=== PATIENT | female | born 1975 | race Caucasian/White ===

== ENCOUNTER 2017-06-20 09:22 | Outpatient (CLI) | payer OTHER ==
[2013-12-31 11:51] VITALS: BP 155/67
[2017-06-20 10:17] LABS: eGFR (African) > 60; eGFR (Non-African) > 60
== END 2017-06-20 09:23 ==
LOC: LAB 09:22
PROVIDERS: ATTEND Family Medicine
DX: E78.2 Mixed hyperlipidemia (principal)
CPT/HCPCS: 36415; 80053; 80061

== ENCOUNTER 2018-10-22 07:20 | Outpatient (CLI) | payer OTHER ==
[2013-12-31 11:51] VITALS: BP 155/67
[2018-10-22 08:03] LABS: eGFR (Non-African) > 60
== END 2018-10-22 07:22 ==
LOC: LAB 07:20
PROVIDERS: ATTEND Family Medicine
DX: E78.2 Mixed hyperlipidemia (principal)
CPT/HCPCS: 36415; 80053; 80061